=== PATIENT | male | born 1960 | race Caucasian/White ===

== ENCOUNTER → 2016-11-27 | Outpatient (CLI) | payer OTHER ==
--- NOTE | 2016-11-27 10:19 | CT ---
EXAMINATION TYPE: CT chest w con DATE OF EXAM: 11/27/2016 10:09 AM COMPARISON: 04/03/2016 HISTORY: Pulmonary nodule CT DLP: 385.50 mGycm Automated exposure control for dose reduction was used. CONTRAST: CT scan of the chest is performed with IV Contrast, patient injected with 100 ml mL of Omnipaque 300. FINDINGS: The heart is normal size without pericardial effusion. Aorta is normal caliber with conventional arch vessel branching anatomy. A few scattered nonenlarged mediastinal lymph nodes are present. No thoracic lymphadenopathy. Trace bilateral gynecomastia. Previous seen noted nodules have resolved. Hyperdense lesion dome of the liver posteriorly. 8 mm likely related to small hemangioma. No consolidation or pleural effusion. Visualized upper abdomen shows no gross abnormality. Bones: Endplate spondylosis mid to lower thoracic spine. No osseous destructive process. IMPRESSION: 1. No evidence of pulmonary nodules. 2. No acute intrathoracic process. 3. 8 mm hepatic lesion most typical of hemangioma.
== END | disposition home or self-care (01) ==
LOC: RADCTMAIN 09:37
PROVIDERS: ATTEND Internal Medicine Critical Care Medicine
DX: R91.1 Solitary pulmonary nodule (principal)
CPT/HCPCS: 71260; Q9967